=== PATIENT | female | born 1990 | race Two or more races ===

== ENCOUNTER 2020-08-09 15:21 | Emergency (ER) | payer OTHER ==
[~2020-08-09] VITALS: Ht 165.1 cm; Wt 117.5 kg
[2020-08-09 17:16] LABS: Urine Bacteria NONE SEEN /hpf (None Seen); Urine Blood 3+ /uL (Negative); Urine Specific Gravity 1.018 (1.001-1.035); Urine WBC 266 /hpf (0 - 5); Urine WBC Clumps PRESENT /hpf (None Seen)
[2020-08-09 19:44] VITALS: BP 101/71
== END 2020-08-09 20:42 | disposition home or self-care (01) ==
LOC: ER 15:21
DX: N39.0 Urinary tract infection, site not specified (principal)
CPT/HCPCS: 81001